=== PATIENT | female | born 1965 | race Caucasian/White ===

== ENCOUNTER 2020-04-24 14:23 | Emergency (ER) | payer OTHER ==
[2020-04-24] MEDS ORDERED: HYDROCODONE/ACETAMINOPHEN 5-325 MG TABLET PO ONE (14:48)
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
[2020-04-24 16:43] VITALS: BP 119/72
== END 2020-04-24 16:21 | disposition home or self-care (01) ==
LOC: ER 14:23
PROC: 2W3RX1Z Immobilization of Left Lower Leg using Splint (ICD-10-PCS; principal; 2020-04-24)
PROC: 2W3SX1Z Immobilization of Right Foot using Splint (ICD-10-PCS; 2020-04-24)
DX: S93.402A Sprain of unspecified ligament of left ankle, initial encounter (principal); S82.891A Other fracture of right lower leg, initial encounter for closed fracture; S16.1XXA Strain of muscle, fascia and tendon at neck level, initial encounter; S63.509A Unspecified sprain of unspecified wrist, initial encounter; M79.10 Myalgia, unspecified site; M25.571 Pain in right ankle and joints of right foot; M25.572 Pain in left ankle and joints of left foot; M25.531 Pain in right wrist; M25.532 Pain in left wrist; M54.2 Cervicalgia; M54.9 Dorsalgia, unspecified; V87.7XXA Person injured in collision between other specified motor vehicles (traffic), initial encounter; Z87.891 Personal history of nicotine dependence; I10 Essential (primary) hypertension; E11.9 Type 2 diabetes mellitus without complications
CPT/HCPCS: 72070; 72125; 99284

== ENCOUNTER → 2020-04-29 | Outpatient (CLI) | payer OTHER ==
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
== END ==
LOC: RAD 16:18
PROVIDERS: ATTEND Nurse Practitioner Family
DX: M25.561 Pain in right knee (principal)

== ENCOUNTER 2020-07-01 11:35 | Emergency (ER) | payer OTHER ==
[2020-07-01] MEDS ORDERED: ACETAMINOPHEN 325 MG TABLET PO ONE (12:32)
[2020-07-01] MEDS ORDERED: HYDROCODONE/ACETAMINOPHEN 5-325 MG TABLET PO ONE (12:32)
[2020-07-01 12:59] LABS: ABSOLUTE LYMPHOCYTES (AUTO) 1.8 10^3/uL (0.5-4.7); ABSOLUTE MONOCYTES (AUTO) 0.6 10^3/uL (0.1-1.4); ABSOLUTE NEUT (AUTO) 4.6 10^3/uL (1.7-8.2); BASOPHILS % (AUTO) 0.4 % (0-2); EOSINOPHILS % (AUTO) 0.3 % (0-6); HEMATOCRIT 35.8 % (36.0-47.0); HEMOGLOBIN 11.8 g/dL (12.0-15.5); LYMPHOCYTES % (AUTO) 25.6 % (13-45); MEAN CORPUSCULAR HEMOGLOBIN 26.2 pg (27.0-33.4); MEAN CORPUSCULAR VOLUME 79 fl (80-97); MONOCYTES % (AUTO) 8.4 % (3-13); PLATELET COUNT 260 10^3/uL (150-450); RED BLOOD COUNT 4.52 10^6/uL (3.72-5.28); RED CELL DISTRIBUTION WIDTH 14.3 % (11.5-14.0); SEGMENTED NEUTROPHILS % (AUTO) 65.3 % (42-78); TOTAL CELLS COUNTED % (AUTO) 100 %
[2020-07-01 13:17] LABS: BLOOD UREA NITROGEN 16 mg/dL (7-20); CALCIUM 9.4 mg/dL (8.4-10.2); GLUCOSE 133 mg/dL (75-110)
[2020-07-01 13:18] LABS: ALBUMIN 3.9 g/dL (3.5-5.0); ALKALINE PHOSPHATASE 72 U/L (38-126); ANION GAP 7 (5-19); ASPARTATE AMINO TRANSFERASE 77 U/L (14-36); BILIRUBIN,DIRECT 0.2 mg/dL (0.0-0.4); BILIRUBIN,TOTAL 0.3 mg/dL (0.2-1.3); CARBON DIOXIDE 30 mmol/L (22-30); CHLORIDE 100 mmol/L (98-107); POTASSIUM 3.8 mmol/L (3.6-5.0); TOTAL PROTEIN 6.5 g/dL (6.3-8.2)
--- NOTE | 2020-07-01 13:40 | RADIOLOGY REPORT (SQ) ---
EXAM DESCRIPTION: CHEST SINGLE VIEW IMAGES COMPLETED DATE/TIME: 07/01/2020 1:11 pm REASON FOR STUDY: cough, congestion, fever COMPARISON: None. EXAM PARAMETERS: NUMBER OF VIEWS: One view. TECHNIQUE: Single frontal radiographic view of the chest acquired. RADIATION DOSE: NA LIMITATIONS: None. FINDINGS: LUNGS AND PLEURA: Subsegmental primarily linear density in both lung bases. No infiltrate . No effusions. MEDIASTINUM AND HILAR STRUCTURES: No masses. Contour normal. HEART AND VASCULAR STRUCTURES: Heart normal in size. Normal vasculature. BONES: No acute findings. HARDWARE: None in the chest. OTHER: No other significant finding. IMPRESSION: Basilar atelectasis. No infiltrate. TECHNICAL DOCUMENTATION: JOB ID: [id number] 2010 [employer]- All Rights Reserved Reading location - IP/workstation name: [email or web address]
--- NOTE | 2020-07-01 14:13 | ER Document Report ---
Entered by JORDON BENJAMIN SCRIBE 07/01/20 1324 Acting as scribe for:LUIS SAINZ MD ED General - General Chief Complaint: Flu Symptoms Stated Complaint: COUGH,FEVER,SORE THROAT,CONGESTION Time Seen by Provider: 07/01/20 11:46 Mode of Arrival: Ambulatory Information source: Patient Notes: This 55-year-old female patient presents to the emergency department today with complaints of generalized body aches and a cough since Sunday, on Sunday her body aches got worse and she developed nasal congestion and a headache. 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 They told her to come into the hospital and they would rapid test her that day. Patient states since it has now been 3 days since the test and she has not heard the results so she called back and they told her that they "do not know what happened, they could not find her test". They told her to go to the closest hospital to be tested which was here so that is why she is here. The patient did get her flu shot this year. 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[place], [place] Family History: Reviewed & Not Pertinent - Past Medical History Cardiac Medical History: Reports: Hx Hypercholesterolemia, Hx Hypertension Endocrine Medical History: Reports: Hx Diabetes Mellitus Type 2 Musculoskeletal Medical History: Reports Hx Arthritis Psychiatric Medical History: Reports: Hx Bipolar Disorder Past Surgical History: Reports: Hx Cholecystectomy, Hx Nose Surgery - nasal polyps, Hx Rectal Surgery - hemmorhoids, Hx Tubal Ligation, Other - Lung lobectomy Review of Systems - Review of Systems Constitutional: See HPI, Fever EENT: See HPI, Nose congestion, Throat pain Cardiovascular: No symptoms reported Respiratory: See HPI, Cough Gastrointestinal: denies: Nausea, Vomiting Genitourinary: No symptoms reported Female Genitourinary: No symptoms reported Musculoskeletal: See HPI, Muscle pain Skin: No symptoms reported Hematologic/Lymphatic: No symptoms reported Neurological/Psychological: No symptoms reported -: Yes All other systems reviewed and negative Physical Exam - Vital signs Vitals: Temp Pulse Resp BP Pulse Ox 99.4 F 80 20 116/63 95 07/01/20 11:43 07/01/20 11:43 07/01/20 11:43 07/01/20 11:43 07/01/20 11:43 - Notes Notes: Physical Exam: General: Alert, appears well. Hoarse voice. HEENT: Normocephalic. Atraumatic. PERRL. Extraocular movements intact. No posterior oropharynx erythema or exudate, airway is patent. TMs are clear and non-bulging bilaterally. Nasal sinus congestion. Neck: Supple. Non-tender. Respiratory: No respiratory distress. Rhonchi with forced cough bilaterally. Cardiovascular: Regular rate and rhythm. Abdominal: Obese. Non-tender. No distension. Normal Bowel Sounds. Back: No gross abnormalities. Extremities: Moves all four extremities. Upper extremities: Normal inspection. Normal ROM. Lower extremities: Normal inspection. No edema. Normal ROM. Neurological: Normal cognition. AAOx4. Normal speech. Psychological: Normal affect. Normal Mood. Skin: Warm. Dry. Normal color. Course - Vital Signs Vital signs: Temp Pulse Resp BP Pulse Ox 99.2 F 76 16 106/50 L 97 07/01/20 14:23 07/01/20 14:23 07/01/20 14:23 07/01/20 14:23 07/01/20 14:23 - Laboratory Result Diagrams: 07/01/20 12:37 07/01/20 12:37 Laboratory results interpreted by me: 07/01/20 07/01/20 12:37 12:37 Hgb 11.8 L Hct 35.8 L MCV 79 L MCH 26.2 L RDW 14.3 H Sodium 136.7 L Glucose 133 H AST 77 H ALT 72 H - Diagnostic Test Radiology reviewed: Image reviewed, Reports reviewed - Chest x-ray shows basilar atelectasis otherwise unremarkable. Discharge - Discharge Clinical Impression: Viral upper respiratory tract infection with cough, Encounter for laboratory testing for COVID-19 virus Condition: Stable Disposition: HOME, SELF-CARE Instructions: COVID-19 Guidance for Persons Under Investigation Additional Instructions: Viral Syndrome: The physician has diagnosed a viral infection. Viruses not only cause "colds," but can cause many different symptoms including generalized aching, fever, headache, cough, diarrhea, nausea, vomiting, and fatigue. The treatment, for the most part, is simply relief of symptoms. This means that antibiotics are usually not given. Rest, fluids, pain medications and, occasionally, medication for the specific symptoms that are most bothersome will be prescribed. Use good handwashing to avoid passing the virus to others. Shared toys should be cleaned with disinfectant. Clean the toilets, sinks, and counter surfaces in bathrooms. Launder clothing in hot water. Contact the physician if you develop any new or unusual symptoms such as severe headache, stiff neck, high fever, chest pain, productive cough, or shortness of breath. You should be rechecked if you don't see marked improvement within seven to 10 days. Drink plenty of fluids. Get plenty of rest. Take Tylenol every 4 hours and ibuprofen every 6 hours for fever and body aches. Take Imodium-AD for diarrhea if needed. Take Robitussin-DM or Delsym DM to help control your cough. Self isolate at home until you get the Covid test back. Follow-up with your primary care provider if not improving. RETURN TO THE EMERGENCY ROOM IF ANY NEW OR WORSENING SYMPTOMS. Forms: Special Work Note I personally performed the services described in the documentation, reviewed and edited the documentation which was dictated to the scribe in my presence, and it accurately records my words and actions.
[2020-07-01 14:24] VITALS: BP 106/50
== END 2020-07-01 14:45 | disposition home or self-care (01) ==
LOC: ER 11:35
DX: U07.1 COVID-19 (principal); J06.9 Acute upper respiratory infection, unspecified; R05 Cough; R50.9 Fever, unspecified; J02.9 Acute pharyngitis, unspecified; R09.81 Nasal congestion; M79.10 Myalgia, unspecified site; R51.9 Headache, unspecified; Z79.899 Other long term (current) drug therapy; Z79.84 Long term (current) use of oral hypoglycemic drugs; Z87.891 Personal history of nicotine dependence; I10 Essential (primary) hypertension; E11.9 Type 2 diabetes mellitus without complications
CPT/HCPCS: 99284; 36415; 85025; 87635; 80053; 71045; C9803